=== PATIENT | male | born 1990 | race Caucasian/White ===

== ENCOUNTER 2018-06-01 10:29 | Emergency (ER) | payer MEDICAID ==
[~2018-06-01] VITALS: Ht 188 cm; Wt 61.0 kg
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
--- NOTE | 2018-06-01 10:40 | NUR ---
Level [address] Costa.
--- NOTE | 2018-06-01 10:41 | NUR ---
Dr. Costa at bedside for abdominal ultrasound.
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
[2018-06-01] MEDS ORDERED: normal saline 1000ML IV soln IVB ONE (10:45)
--- NOTE | 2018-06-01 11:01 | NUR ---
patient to ct with Primary RN.
[2018-06-01 11:04] LABS: MEAN CORPUSCULAR HEMOGLOBIN 29.5 PG (27.0-31.0); WHITE BLOOD COUNT 9.3 X10'3 (4.5-11.0)
[2018-06-01 11:05] LABS: BASOPHILS % (AUTO) 0.5 % (0-1); EOSINOPHILS % (AUTO) 0.4 % (0-6); HEMATOCRIT 44.3 % (42.0-52.0); HEMOGLOBIN 15.1 g/dl (14.0-17.9); LYMPHOCYTES # (AUTO) 1.7 X10'3 (1.1-4.8); LYMPHOCYTES % (AUTO) 17.9 % (21-51); MEAN CORPUSCULAR HGB CONC 34.1 g/dL (33.0-36.5); MEAN CORPUSCULAR VOLUME 86.5 FL (78-98); MEAN PLATELET VOLUME 7.5 FL (7.4-10.4); MONOCYTES # (AUTO) 1.2 X10'3 (0-0.9); NEUTROPHILS # (AUTO) 6.3 X10'3 (1.8-7.7); NEUTROPHILS % (AUTO) 68.2 % (42-75); PLATELET COUNT 317 X10'3 (140-440); RED BLOOD COUNT 5.12 X10'6 (4.70-6.10); RED CELL DISTRIBUTION WIDTH 14.5 % (11.5-14.5)
--- NOTE | 2018-06-01 11:15 | NUR ---
patient back in the room.
[2018-06-01] MEDS ORDERED: morphine 4 MG/ML inj SYRINge IV STA (11:18)
--- NOTE | 2018-06-01 11:19 | NUR ---
received a v.o from dr. laughlin morphine 4mg iv stat.
[2018-06-01 11:24] LABS: ANION GAP 16 (8-16); BLOOD UREA NITROGEN 12 MG/DL (7-18); BUN/CREATININE RATIO 15.8 (5.4-32.0); CHLORIDE 103 MMOL/L (99-107); CREATININE 0.76 MG/DL (0.60-1.10); GLUCOSE 76 MG/DL (70-104); SODIUM 142 MMOL/L (135-145); TOTAL CARBON DIOXIDE 23.3 MMOL/L (24-32)
[2018-06-01 11:25] LABS: ALANINE AMINOTRANSFERASE 26 U/L (12-78); ALBUMIN 4.1 G/DL (3.4-5.0); ALBUMIN/GLOBULIN RATIO 1.3 (1.1-1.5); ALKALINE PHOSPHATASE 102 IU/L (46-116); ASPARTATE AMINO TRANSFERASE 38 U/L (10-37); BILIRUBIN,TOTAL 0.5 MG/DL (0.1-1.0); TOTAL PROTEIN 7.3 G/DL (6.4-8.2); eGFR > 90 ML/MIN
[2018-06-01 11:27] LABS: POTASSIUM 3.8 MMOL/L (3.5-5.1)
[2018-06-01] MEDS ORDERED: HYDR-4353 PO (11:40)
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
--- NOTE | 2018-06-01 11:48 | NUR ---
cpine precaution dc at this time.
[2018-06-01] MEDS ORDERED: LIDOcaine 1% w/epiNEPHrine 1:200,000 30ml vial IM ONE (11:50)
[2018-06-01 12:53] VITALS: BP 131/73
== END 2018-06-01 12:55 | disposition home or self-care (01) ==
LOC: ER 10:29
DX: S61.512A Laceration without foreign body of left wrist, initial encounter (principal); S40.021A Contusion of right upper arm, initial encounter; S70.12XA Contusion of left thigh, initial encounter; S70.311A Abrasion, right thigh, initial encounter; S80.812A Abrasion, left lower leg, initial encounter; S80.811A Abrasion, right lower leg, initial encounter; R68.84 Jaw pain; Z79.899 Other long term (current) drug therapy; V28.4XXA Motorcycle driver injured in noncollision transport accident in traffic accident, initial encounter; Y93.89 Activity, other specified; Y92.89 Other specified places as the place of occurrence of the external cause; Y99.8 Other external cause status
CPT/HCPCS: 12002; 36415; 70450; 71045; 72125; 73060; 80053; 85025; 96374; 99284; J2270; J3490; J7030